=== PATIENT | female | born 1975 | race Caucasian/White ===

== ENCOUNTER → 2023-05-30 | Day surgery (SDC) | payer MEDICARE ==
[2023-05-29 11:20] LABS: BASOPHILS % 0.4 % (0.0-1.0); EOSINOPHILS % 0.4 % (0.0-6.0); HEMATOCRIT 41.3 % (34.2-44.1); HEMOGLOBIN 13.9 g/dL (12.0-16.0); LYMPHOCYTES # (AUTO) 1.7 (1.0-3.2); LYMPHOCYTES % 23.1 % (18.0-39.1); MEAN CORPUSCULAR HEMOGLOBIN 30.7 pg (28-32); MEAN CORPUSCULAR HGB CONC 33.7 g/dL (31-35); MEAN CORPUSCULAR VOLUME 91.2 fL (81-99); MONOCYTES # (AUTO) 0.6 (0.2-0.8); MONOCYTES % 7.6 % (4.4-11.3); NEUTROPHILS # (AUTO) 5.1 (2.1-6.9); NEUTROPHILS % 68.2 % (38.7-80.0); PLATELET COUNT 277 x10e3/uL (140-360); RED BLOOD COUNT 4.53 x10e6/uL (3.6-5.1); RED CELL DISTRIBUTION WIDTH 12.7 % (11.7-14.4); WHITE BLOOD COUNT 7.49 x10e3/uL (4.8-10.8)
[~2023-05-30] MED LIST: ALBUTEROL0.63 MG/3 NEB; ALBUTEROL1.25 MG/3 NEB; BENLYSTA120 MG SC; CARTIA XT240 MG PO; LACTATED RINGER'S 1,000 ML ONE; LIDOCAINE HCL 2% LOCAL INJ 5 ML SDV VIAL INJ ONE; METOPROLOL SUCC50 MG PO; MULTI-VITAMIN1 EACH PO; NURTEC ODT75 MG PO; PLAQUENIL200 MG PO; PROPOFOL IV EMULSION 10 MG/ML 20 ML VIAL ONE; RESTASIS1 EACH OU
[2023-05-30 13:25] VITALS: TEMP 97.7
[2023-05-30 13:45] VITALS: BP 141/87; PULSE 69; RESP 18; O2SAT 100
== END | disposition home or self-care (01) ==
LOC: OR 09:58
PROVIDERS: ATTEND Internal Medicine Gastroenterology
DX: K21.9 Gastro-esophageal reflux disease without esophagitis (principal); D12.3 Benign neoplasm of transverse colon; D12.4 Benign neoplasm of descending colon; K25.3 Acute gastric ulcer without hemorrhage or perforation; K29.50 Unspecified chronic gastritis without bleeding; B96.81 Helicobacter pylori [H. pylori] as the cause of diseases classified elsewhere; K52.9 Noninfective gastroenteritis and colitis, unspecified; K29.60 Other gastritis without bleeding; K29.80 Duodenitis without bleeding; K44.9 Diaphragmatic hernia without obstruction or gangrene; K64.8 Other hemorrhoids; G47.33 Obstructive sleep apnea (adult) (pediatric); R94.5 Abnormal results of liver function studies; I11.0 Hypertensive heart disease with heart failure; I50.9 Heart failure, unspecified; M32.9 Systemic lupus erythematosus, unspecified; E78.5 Hyperlipidemia, unspecified; I49.9 Cardiac arrhythmia, unspecified; J45.909 Unspecified asthma, uncomplicated; F32.A Depression, unspecified; G40.909 Epilepsy, unspecified, not intractable, without status epilepticus; Z01.810 Encounter for preprocedural cardiovascular examination; Z01.812 Encounter for preprocedural laboratory examination; Z79.899 Other long term (current) drug therapy; Z68.41 Body mass index [BMI] 40.0-44.9, adult
CPT/HCPCS: 36415; 43239; 45380; 45385; 81025; 85025; 88305; 88342; 93005; J2001; J2704; J7121; 45378; 88304; 88312

== ENCOUNTER → 2023-08-29 | Day surgery (SDC) | payer MEDICARE ==
[~2023-08-29] MED LIST changes: +ALBUTEROL; +BREO ELLIPTA 21 EACH INH; +DICYCLOMINE HCL20 MG PO; +FLONASE ALLERG9.9 ML INH; +LIDOCAINE HCL 1% 2 ML AMP ONE; -LIDOCAINE HCL 2% LOCAL INJ 5 ML SDV VIAL INJ ONE; -PROPOFOL IV EMULSION 10 MG/ML 20 ML VIAL ONE; +PROTONIX20 MG PO; +ROCURONIUM IV; +[UNRECOGNIZED DRUG - OTHER]; +[UNRECOGNIZED DRUG - OTHER]; +[UNRECOGNIZED DRUG - REMARK]
[2023-08-29 11:37] VITALS: TEMP 97.7
[2023-08-29 11:50] VITALS: BP 123/67; PULSE 64; RESP 16; O2SAT 99
== END | disposition home or self-care (01) ==
LOC: OR 09:13
PROVIDERS: ATTEND Internal Medicine Gastroenterology
DX: K25.3 Acute gastric ulcer without hemorrhage or perforation (principal); K29.60 Other gastritis without bleeding; K29.50 Unspecified chronic gastritis without bleeding; K21.9 Gastro-esophageal reflux disease without esophagitis; K44.9 Diaphragmatic hernia without obstruction or gangrene; R19.7 Diarrhea, unspecified; K64.8 Other hemorrhoids; A04.8 Other specified bacterial intestinal infections; K29.80 Duodenitis without bleeding; G47.33 Obstructive sleep apnea (adult) (pediatric); R94.5 Abnormal results of liver function studies; I25.10 Atherosclerotic heart disease of native coronary artery without angina pectoris; E78.5 Hyperlipidemia, unspecified; I49.9 Cardiac arrhythmia, unspecified; N39.0 Urinary tract infection, site not specified; R03.0 Elevated blood-pressure reading, without diagnosis of hypertension; I50.9 Heart failure, unspecified; M32.9 Systemic lupus erythematosus, unspecified; J45.909 Unspecified asthma, uncomplicated; F17.290 Nicotine dependence, other tobacco product, uncomplicated; Z79.899 Other long term (current) drug therapy; Z68.41 Body mass index [BMI] 40.0-44.9, adult; Z98.61 Coronary angioplasty status
CPT/HCPCS: 43239; 81025; 88305; 88342; J2001; J7121; 88312